=== PATIENT | female | born 1960 | race Caucasian/White ===

== ENCOUNTER → 2017-03-23 | Outpatient (CLI) | payer MEDICAID | END | disposition home or self-care (01) | LOC: CARD 12:40 | PROVIDERS: ATTEND Registered Nurse | DX: R41.3 Other amnesia (principal) | CPT/HCPCS: 95819 ==

== ENCOUNTER 2018-10-29 09:28 | Outpatient (CLI) | payer MEDICAID | END 2018-10-29 23:59 | disposition home or self-care (01) | LOC: CVU 09:28 | PROVIDERS: ATTEND Internal Medicine | DX: I87.2 Venous insufficiency (chronic) (peripheral) (principal) | CPT/HCPCS: 93970 ==